=== PATIENT | female | born 1940 | race Caucasian/White ===

== ENCOUNTER 2017-11-29 01:00 | Emergency (ER) | payer MEDICARE ==
[~2017-11-29] VITALS: Ht 167.6 cm; Wt 84.1 kg
[~2017-11-29 01:00] MED LIST: AVAPRO150 MG PO; ESTRACE 0.5 MG0.5 MG PO; MAG-OXIDE400 MG PO; MAXZIDE-25 MG T1 TAB PO; MICARDIS80 MG; PRILOSEC20 MG PO; TUMS500 MG PO; VERELAN360 MG; [UNRECOGNIZED DRUG - OTHER]
[2017-11-29 01:04] VITALS: Ht 167.6 cm; Wt 84.1 kg
[2017-11-29] MEDS ORDERED: CARDIZEM CD360 MG PO (01:08)
[2017-11-29 02:02] VITALS: BP 167/78
== END 2017-11-29 02:02 | disposition home or self-care (01) ==
LOC: D.ER 01:00
DX: I10 Essential (primary) hypertension (principal)

== ENCOUNTER → 2018-03-14 20:09 | Outpatient (CLI) | payer MEDICARE ==
[2017-11-29 01:04] VITALS: BMI 29.9
[~2018-03-14 20:09] MED LIST changes: +CARDIZEM CD360 MG PO
== END | disposition home or self-care (01) ==
LOC: D.MAMMO 13:30
DX: Z12.31 Encounter for screening mammogram for malignant neoplasm of breast (principal)

== ENCOUNTER → 2019-04-17 09:54 | Outpatient (CLI) | payer MEDICARE ==
[2017-11-29 01:04] VITALS: BMI 29.9
[~2019-04-17 09:54] MED LIST changes: +VERELAN180 MG PO
== END | disposition home or self-care (01) ==
LOC: D.HCCECHO 09:54
PROVIDERS: ATTEND Internal Medicine Cardiovascular Disease
DX: I34.0 Nonrheumatic mitral (valve) insufficiency (principal)

== ENCOUNTER 2019-04-19 12:49 | Inpatient (IN) | payer MEDICARE ==
[~2019-04-19] VITALS: Ht 167.6 cm; Wt 81.8 kg
[~2019-04-19 12:49] MED LIST changes: -VERELAN180 MG PO
[2019-04-19] MEDS ORDERED: VERELAN180 MG PO (16:09)
[2019-04-19 16:10] VITALS: BP 165/88; BMI 29.1
--- NOTE | 2019-04-19 16:10 | NUR ---
PT TO ROOM [address]'S OFFICE.ASSESSMENT PER JAZMIN RODRIGUEZ RN. ORIENTATION TO ROOM WITH PATIENT.CALL LIGHT IN REACH
[2019-04-19 16:57] VITALS: Ht 167.6 cm; Wt 81.8 kg
--- NOTE | 2019-04-19 19:50 | NUR ---
LYING QUEITLY WITH NO DISTRESS NOTED. RESP UNLABORED. IV TO LAC INTACT WIHT NO REDNESS OR EDEMA NOTED.DENIES NEEDS AT PRESENT. CL IN REACH
[2019-04-19 20:00] VITALS: BP 125/60
[2019-04-19 23:57] VITALS: BP 125/67
--- NOTE | 2019-04-20 02:19 | NUR ---
I have reviewed this patient and I concur with the Shift Assessment completed by the Licensed Practical Nurse today this shift.
[2019-04-20 04:00] VITALS: BP 148/70
[2019-04-20 05:56] LABS: BASOPHILS 0.3 % (0-2); EOSINOPHILS 2.6 % (0-7); HEMOGLOBIN 12.8 g/dL (12-16); IMMATURE GRANULOCYTES 0.3 % (0-5); LYMPHOCYTES 26.5 % (15-50); MCH 30.6 pg (26.0-34.0); MCHC 33.7 g/dL (31.0-37.0); MCV 90.9 fL (80.0-100.0); MEAN PLATELET VOLUME 8.8 fL (7.4-10.4); MONOCYTES 10.6 % (2-11); NEUTROPHILS 59.7 % (40-80); PLATELET COUNT 305 10x3/uL (130-400); RBC 4.18 10x6/uL (4.00-5.40); WBC 6.6 10x3/uL (4.8-10.8)
[2019-04-20 06:24] LABS: INR 1.11 (0.85-1.17); PROTIME 13.8 SECONDS (11.6-15.0)
[2019-04-20 06:40] LABS: ALBUMIN 2.9 g/dL (3.4-5.0); ALKALINE PHOSPHATASE 76 U/L (46-116); ALT (SGPT) 23 U/L (10-68); CALC OSMOLALITY 273 mosm/kg (275-300); CALCIUM 8.4 mg/dL (8.5-10.1); CARBON DIOXIDE 29.9 mmol/L (21.0-32.0); CHLORIDE - SERUM 101 mmol/L (98-107); CREATININE - SERUM 0.7 mg/dL (0.6-1.3); GLUCOSE 121 mg/dL (74-106); POTASSIUM - SERUM 3.8 mmol/L (3.5-5.1); PROTEIN - SERUM 6.3 g/dL (6.4-8.2); SODIUM 136 mmol/L (136-145); UREA NITROGEN 14 mg/dL (7-18); eGFR NON AFRICAN AMERICAN 85 mL/min (90-120)
[2019-04-20 07:49] VITALS: BP 150/75
--- NOTE | 2019-04-20 09:37 | NUR ---
PT ALERT X 4. BREATH SOUNDS CLEAR BILAT. PT REPORTING IMPROVEMENT IN PAIN, RATED 2/10, ABDOMEN TENDER TO TOUCH. IV TO LEFT FOREARM, SALINE LOCKED. BED LOW, CALL LIGHT IN REACH. NO OTHER NEEDS AT THIS TIME.
[2019-04-20 12:00] VITALS: BP 150/66
--- NOTE | 2019-04-20 13:07 | MORECARE ---
CASE MANAGEMENT DISCHARGE SUMMARY PATIENT: MALISSA BARRIENTOS UNIT: [id number] ADM DATE: 04/19/19 AGE: 78 : 38 SEX: F ROOM/BED: D.2219 AUTHOR: SYDNI PICKETT PHYSICIAN: REFERRING PHYSICIAN: RONY LARSON MD DATE OF SERVICE: 04/20/19 Discharge Plan Patient Name: MALISSA BARRIENTOS [facility] [facility] 1940 Planned Disposition: Anticipated Discharge Date: Discharge Date: Expected LOS: Initial Reviewer: [email or web address] Initial Review Date: 04/19/2019 Generated: 04/20/19 2:07 pm Patient Name: MALISSA BARRIENTOS Page [phone] at 1307 All edits/amendments must be made on the electronic document DICTATION DATE: 04/20/19 1307 COMPTOMETER OPERATOR: RADHA 04/20/19 1307 RPT#: [id number] DC DATE: STATUS: ADM IN [facility] [address] [place] [address] END OF REPORT
--- NOTE | 2019-04-20 13:15 | MORECARE ---
CASE MANAGEMENT DISCHARGE SUMMARY PATIENT: SUSANNE BOLIVAR N UNIT: [id number] ADM DATE: 04/19/19 AGE: 78 : 38 SEX: F ROOM/BED: D.2217 AUTHOR: SYDNI PICKETT PHYSICIAN: REFERRING PHYSICIAN: RONY LARSON MD DATE OF SERVICE: 04/20/19 Discharge Plan Patient Name: SUSANNE BOLIVAR Facility: [facility]:[place] : 1940 Planned Disposition: Anticipated Discharge Date: Discharge Date: Expected LOS: Initial Reviewer: [email or web address] Initial Review Date: 04/19/2019 Generated: 04/20/19 2:15 pm Comments DCP- Discharge Planning Updated by [email or web address]: Rasheeda Donnelly on 04/20/19 12:[address] CM met with patient and spouse, Rony for initial discharge plan. Patient is in agreement to proceed with CM assessment with spouse present. Patient lives in her home with spouse and has 1 step entering home. PCP: Dr. Larsno. Pharmacy: [facility]. DME: None. Uses hearing aid. Independent with ADL's. Emergency contact: Rony Bolivar #[phone]. CM discussed HHS, Rehab, DME, but patient denies any needs. Denies use of community resources. Patient feels her home is a safe environment to return to. Patient denies hospitalization in past 30 days. Transportation home will be provided by spouse, Rony. CM will follow and assist with any dc needs PRN. Coverage Notice Reviewer: [id number] - Rasheeda Donnelly Notice Issued Date-Time: 04/20/2019 13:12 Notice Type: IM Admission Notice Notice Delivered To: Patient Relationship to Patient: Self Continuous Conveyor Screen Drier Name: Susanne Bolivar Delivery Method: HAND - Hand Delivered Margarita Days: Prior Verbal Notification: Recipient Understood Notice: Yes Recipient Signature: Yes Med Rec Note Co-signed by Attending: Coverage Notice Comment: IMM delivered to and signed by patient. Original given to patient and one is placed on chart. Last DP export: 04/20/19 12:07 Patient Name: SUSANNE BOLIVAR Page [phone] at 1315 All edits/amendments must be made on the electronic document DICTATION DATE: 04/20/191314 BARREL RIB MATTING MACHINE OPERATOR: RADHA 04/20/191314 RPT#: [id number] DC DATE: STATUS: ADM IN [facility] [address] [place] [address] END OF REPORT
[2019-04-20] MEDS ORDERED: LEVOFLOXACIN500 MG PO (13:26)
--- NOTE | 2019-04-20 15:03 | NUR ---
DISCHARGE COMPLETED BY Lily DE LEON LPN.
--- NOTE | 2019-04-21 14:09 | MORECARE ---
CASE MANAGEMENT DISCHARGE SUMMARY PATIENT: SUSANNE BOLIVAR N UNIT: [id number] ADM DATE: 04/19/19 AGE: 78 : 38 SEX: F ROOM/BED: D.2219 AUTHOR: SYDNI PICKETT PHYSICIAN: REFERRING PHYSICIAN: RONY LARSON MD DATE OF SERVICE: 04/21/19 Discharge Plan Patient Name: SUSANNE BOLIVAR Facility: [facility]:[place] : 1940 Planned Disposition: Anticipated Discharge Date: Discharge Date: 04/20/2019 Expected LOS: Initial Reviewer: [email or web address] Initial Review Date: 04/19/2019 Generated: 04/21/19 3:08 pm Comments DCP- Discharge Planning Updated by [id number]: Rasheeda Donnelly on 04/20/19 12:[address] CM met with patient and spouse, Rony for initial discharge plan. Patient is in agreement to proceed with CM assessment with spouse present. Patient lives in her home with spouse and has 1 step entering home. PCP: Dr. Larson. Pharmacy: [facility]. DME: None. Uses hearing aid. Independent with ADL's. Emergency contact: Rony Bolivar #[phone]. CM discussed HHS, Rehab, DME, but patient denies any needs. Denies use of community resources. Patient feels her home is a safe environment to return to. Patient denies hospitalization in past 30 days. Transportation home will be provided by spouse, Rony. CM will follow and assist with any dc needs PRN. Coverage Notice Reviewer: [id number] - Rasheeda Donnelly Notice Issued Date-Time: 04/20/2019 13:12 Notice Type: IM Discharge Notice Notice Delivered To: Patient Relationship to Patient: Self Labor Economist Name: Susanne Bolivar Delivery Method: HAND - Hand Delivered Margarita Days: Prior Verbal Notification: Recipient Understood Notice: Yes Recipient Signature: Yes Med Rec Note Co-signed by Attending: Coverage Notice Comment: IMM delivered to and signed by patient. Original given to patient and one is placed on chart. Last DP export: 04/20/19 12:15 Patient Name: SUSANNE BOLIVAR Page [phone] at 1409 All edits/amendments must be made on the electronic document DICTATION DATE: 04/21/191407 FISCAL ACCOUNTING CLERK: RADHA 04/21/191407 RPT#: [id number] DC DATE:04/20/19 STATUS: DIS IN [facility] [address] [place] [address] END OF REPORT
== END 2019-04-20 15:03 | disposition home or self-care (01) | DRG 372 ==
LOC: D.CT 12:49 → D.MS 15:46
PROVIDERS: ADMIT Family Medicine; ATTEND Family Medicine
DX: K65.1 Peritoneal abscess (principal); K56.7 Ileus, unspecified; K56.50 Intestinal adhesions [bands], unspecified as to partial versus complete obstruction; I10 Essential (primary) hypertension

== ENCOUNTER 2019-05-26 14:28 | Emergency (ER) | payer MEDICARE ==
[~2019-05-26] VITALS: Ht 167.6 cm; Wt 81.8 kg
[~2019-05-26 14:28] MED LIST changes: +LEVOFLOXACIN500 MG PO; +VERELAN180 MG PO
[2019-05-26 14:30] VITALS: Ht 167.6 cm; Wt 81.8 kg
[2019-05-26 14:59] LABS: BASOPHILS 0.2 % (0-2); EOSINOPHILS 0.8 % (0-7); HEMATOCRIT 40.3 % (36.0-48.0); HEMOGLOBIN 13.5 g/dL (12-16); IMMATURE GRANULOCYTES 0.1 % (0-5); LYMPHOCYTES 17.6 % (15-50); MCHC 33.5 g/dL (31.0-37.0); MCV 92.4 fL (80.0-100.0); MEAN PLATELET VOLUME 8.6 fL (7.4-10.4); NEUTROPHILS 71.3 % (40-80); PLATELET COUNT 312 10x3/uL (130-400); RBC 4.36 10x6/uL (4.00-5.40); RDW 13.2 % (11.5-14.5); WBC 8.7 10x3/uL (4.8-10.8)
[2019-05-26 15:04] LABS: APPEARANCE CLEAR (CLEAR); COLOR YELLOW (YELLOW); GLUCOSE NEGATIVE (NEGATIVE); KETONE SMALL mg/dL (NEGATIVE); NITRITE NEGATIVE (NEGATIVE); PROTEIN NEGATIVE (NEGATIVE)
[2019-05-26 15:05] LABS: BILIRUBIN NEGATIVE (NEGATIVE); UROBILINOGEN NORMAL (NORMAL)
[2019-05-26 15:06] LABS: RED CELLS - URINE 0-5 /hpf (0-5); WHITE CELLS - URINE 0-5 /hpf (NEGATIVE)
[2019-05-26 15:07] LABS: BACTERIA FEW /hpf (NEGATIVE)
[2019-05-26 15:16] LABS: CALC OSMOLALITY 278 mosm/kg (275-300); CALCIUM 9.1 mg/dL (8.5-10.1); CARBON DIOXIDE 31.4 mmol/L (21.0-32.0); CHLORIDE - SERUM 99 mmol/L (98-107); CREATININE - SERUM 0.7 mg/dL (0.6-1.3); GLUCOSE 110 mg/dL (74-106); POTASSIUM - SERUM 4.2 mmol/L (3.5-5.1); SODIUM 138 mmol/L (136-145); UREA NITROGEN 19 mg/dL (7-18); eGFR NON AFRICAN AMERICAN 85 mL/min (90-120)
[2019-05-26 15:22] LABS: ALBUMIN 3.6 g/dL (3.4-5.0); ALKALINE PHOSPHATASE 86 U/L (46-116); ALT (SGPT) 25 U/L (10-68); BILIRUBIN - TOTAL 0.35 mg/dL (0.2-1.3); PROTEIN - SERUM 7.1 g/dL (6.4-8.2)
[2019-05-26 18:10] VITALS: BP 132/84
== END 2019-05-26 18:11 | disposition home or self-care (01) ==
LOC: D.ER 14:28
PROVIDERS: Family Medicine
DX: R10.9 Unspecified abdominal pain (principal); I10 Essential (primary) hypertension; E07.9 Disorder of thyroid, unspecified; K21.9 Gastro-esophageal reflux disease without esophagitis

== ENCOUNTER 2020-02-09 15:27 | Observation (INO) | payer MEDICARE ==
[~2020-02-09] VITALS: Ht 167.6 cm; Wt 81.8 kg
--- NOTE | ~2020-02-09 | HEMODYNAMI ---
PATIENT:MALISSA BARRIENTOS MEDICAL RECORD: [id number] : 36 [facility] [id number] ADMISSION DATE: 02/09/20 Generatedon:02/10/202012:43 Patient name: MALISSA BARRIENTOS Patient #: [id number] SSN: [id number] : 1940 Date of study: 02/10/2020 Page: Of Hemodynamic Procedure Report Patient Data Patient Demographics Procedure consent was obtained First Name: MALISSA Gender: Female Last Name: ILIANA : 1940 Middle Initial: N Age: 79 year(s) Patient #: [id number] Race: SSN: [id number] Additional ID: [id number] Contact details Address: [address] [place] [address] State: [place] City: [place] Zip code: [address] Admission Admission Data Admission Date: 02/09/2020 Admission Time: 18:41 Arrival Date: 02/10/2020 Arrival Time: 0:00 Admit Source: Other Insurance Payor: Private Room #: D.2117 health insurance [facility] #: [id number] Height (in.): 66 BSA: 1.91 (m2) Height (cm.): 167.64 BMI: 29.11 (kg/m2) Weight (lbs.): 180.36 Weight (kg.): 81.81 Lab Results Lab Result Date: 02/10/2020 Lab Result Time: 0:00 Biochemistry Name Units Result Min Max BUN mg/dl 18 --(---*)-- 7 18 CK-MB ng/ml 1.3 --(-*--)-- 0 3.6 Creatinine mg/dl 1 --(--*-)-- 0.6 1.3 eGFR ml/min 56 *-(----)-- 90 120 NONAFRICAN Troponin l ng/ml 0.017 --(-*--)-- 0 0.06 CBC Name Units Result Min Max Hematocrit % 38.4 *-(----)-- 42 54 Hemoglobin g/dl 13.2 -*(----)-- 13.5 17.5 Procedure Procedure Types Cath Procedure Diagnostic Procedure [facility] w/Coronaries Sedation Charges Moderate Sedation up to 15 minutes Procedure Description Procedure Date Procedure Date: 02/10/2020 Procedure Start Time: 12:30 Procedure End Time: 12:39 Procedure Staff Name Function Davis Luevano MD Performing Physician Yadira Maldonado RT Monitor Shelby Nicole RT Scrub Yana Shanks RN Nurse Nate Bateman RN Nurse Procedure Data Cath Procedure Fluoroscopy Diagnostic fluoroscopy Total fluoroscopy Time: 1 time: 1 min min Diagnostic fluoroscopy Total fluoroscopy dose: 206 dose: 206 mGy mGy Contrast Material Contrast Material Type Amount (ml) Isovue 300 44 Entry Location Entry Primary Successful Side Size Upsize Upsize Entry Closure Corcoran ccessful Closure Location (Fr) 1 (Fr) 2 (Fr) Remarks Device Remarks Radial Right 6 Fr Mechanical artery Short Compression Estimated blood loss: 5 ml Diagnostic catheters Device Type Used For End Catheter Placement DIAGNOSTIC Euless 110cm 5 Multi-vessel Fr catheter ([id number]) Angiography Procedure Complications No complications Procedure Medications Medication Administration Route Dosage 0.9% NaCl I.V. 100 ml/hr Oxygen etCO2 Nasal cannula 2 l/min Heparin Flush Bag added to field 2 bags (1000units/500ml NS) Lidocaine 2% added to field 20 Radial Cocktail added to field 1 syringe (Verapamil 2mg/Nitro 400mcg/Heparin 1500units) Versed I.V. 1 mg Fentanyl I.V. 50 mcg Radial Cocktail added to field 1 syringe (Verapamil 2mg/Nitro 400mcg/Heparin 1500units) Versed I.V. 1 mg Fentanyl I.V. 50 mcg Hemodynamics Rest BSA: 1.91 (m2) HGB: 13.2 (g/dl) O2 Consumption: Estimated: 166.03 (ml/min) O2 Co nsumption indexed: Estimated:86.93 (ml/min/m) Heart Rate: 63 (bpm) Pressure Samples Time Site Value (mmHg) Purpose Heart Use Rate(bpm) 12:35 LV 115/-31,-1 Snapshot 66 Gradients Valve Time Site Site Mean SEP/DFP Peak To Heart Use 1 2 (mmHg) (sec/min) Peak Rate (mmHg) (bpm) Aortic 12:36 LV AO 69 Snapshots Pre Cath Intra NCS Post Cath Vital Signs Time Heart Resp SPO2 etCO2 NIBP (mmHg) Rhythm Pain Sedation Rate (ipm) (%) (mmHg) Status Level (bpm) 12:17:40 62 14 97 44.6 135/68(111) NSR 0 (11) 10(A) , No pain 12:21:58 60 13 98 27.2 126/66(112) NSR 0 (11) 10(A) , No pain 12:26:14 60 14 97 43.1 117/61(84) NSR 0 (11) 10(A) , No pain 12:30:24 60 11 96 37 109/67(88) NSR 0 (11) 10(A) , No pain 12:34:35 91 15 97 39.3 115/54(80) NSR 0 (11) 10(A) , No pain 12:38:48 65 16 95 42.3 110/55(89) NSR 0 (11) 10(A) , No pain Medications Time Medication Route Dose Verified Delivered Reason Notes Effectiveness by by 12:14:32 0.9% NaCl I.V. 100 Yana Yana Per ml/hr Dimitris Dimitris physician RN RN 12:15:35 Oxygen etCO2 2 l/min Nate Nate for low 02 Nasal Lorigan Lorigan sats cannula RN RN 12:15:55 Heparin Flush added 2 bags Nate Naet used for Bag to Lorigan Lorfarhat procedure (1000units/500ml field RN RN NS) 12:16:14 Lidocaine 2% added 20ml Nate Nate for local to vial Lorigan Lorigan anesthetic field RN RN 12:16:32 Radial Cocktail added 1 Nate Nate used for (Verapamil to syringe Lorigan Lorigan procedure 2mg/Nitro field RN RN 400mcg/Heparin 1500units) 12:20:56 Versed I.V. 1 mg Nate Nate for sedation Fransico Bateman RN RN 12:21:04 Fentanyl I.V. 50 mcg Nate Nate for sedation Fransico Bateman RN RN 12:35:50 Radial Cocktail added 1 Nate Davis for (Verapamil to syringe Lorigan Chloé vasodilation 2mg/Nitro field KEDAR HERNÁNDEZ 400mcg/Heparin 1500units) 12:36:41 Versed I.V. 1 mg Nate Nate for sedation Fransico Bateman RN RN 12:36:48 Fentanyl I.V. 50 mcg Nate Sullivan for sedation Fransico Bateman RN acquisition analyst Log Time Note 11:45:25 Shelby Nicole RT(R) sent for patient. Start room use. 11:46:07 Informed consent obtained and on chart 11:46:29 Diagnostic Cath Status : Urgent 11:47:35 Lab Result : eGFR NONAFRICAN 56 ml/min 11:47:35 Lab Result : BUN 18 mg/dl 11:47:35 Lab Result : Troponin l 0.017 ng/ml 11:47:35 Lab Result : Creatinine 1 mg/dl 11:47:35 Lab Result : CK-MB 1.3 ng/ml 11:47:35 Lab Result : Hemoglobin 13.2 g/dl 11:47:35 Lab Result : Hematocrit 38.4 % 11:47:40 Arrival Date: 02/10/2020 12:00:00 AM 11:47:40 Admit Source: Other 11:47:45 Insurance Payor : Private health insurance 11:47:48 Patient Height : 66 inches 11:47:54 Patient Weight : 180.36 lbs 11:48:13 ACC Patient presents with Stable Angina CCS Anginal Class 2--Slight limitation of ordinary activity. 11:48:16 Procedure Status Urgent Heart Cath (IP). 11:48:18 Time tracking: Regular hours (M-F 7:00 - 5:00) 11:48:22 Plan of Care:Hemodynamics will remain stable., Cardiac rhythm will remain stable., Comfort level will be maintained., Respiratory function will remain adequate., Patient/ family verbilizes understanding of procedure., Procedure tolerated without complication., Recovers from procedure without complications.. 12:14:32 0.9% NaCl 100 ml/hr I.V. was administered by Yana Shanks RN; Per physician; Verbal order read back and verified. 12:15:20 Vital chart was started 12:15:35 Oxygen 2 l/min etCO2 Nasal cannula was administered by Nate Bateman RN; for low 02 sats; Verbal order read back and verified. 12:15:55 Heparin Flush Bag (1000units/500ml NS) 2 bags added to field was administered by Nate Bateman RN; used for procedure; Verbal order read back and verified. 12:16:14 Lidocaine 2% 20ml vial added to field was administered by Nate Bateman RN; for local anesthetic; Verbal order read back and verified. 12:16:32 Radial Cocktail (Verapamil 2mg/Nitro 400mcg/Heparin 1500units) 1 syringe added to field was administered by Nate Bateman RN; used for procedure; Verbal order read back and verified. 12:18:02 Patient received from Med II to CCL 2 Alert and oriented. Tansferred to table in Supine position. 12:18:03 Warm blankets applied, and nelson hugger turned on for patient comfort. 12:18:04 Correct patient and procedure confirmed by team. 12:18:04 ECG and BP/O2 sat monitors applied to patient. 12:18:05 Baseline sample Acquired. 12:18:08 Rhythm: sinus rhythm 12:18:11 Full Disclosure recording started 12:18:20 H&P Date Dictated: 02/10/2020 New H&P dictated by physician.. 12:19:22 Pre-procedure instructions explained to patient. 12:19:23 Pre-op teaching completed and patient verbalized understanding. 12:19:27 Family in patients room. 12:19:29 Patient NPO since Midnight. 12:19:31 Is the patient allergic to Iodine/contrast media? No. 12:19:32 Was the patient premedicated? Yes 12:19:33 Is patient on blood thinner?No 12:19:34 Patient diabetic? No. 12:19:37 Previous problem with sedation/anesthesia? No ? 12:19:39 Snore? Yes 12:19:40 Sleep apnea? No 12:19:41 Deviated septum? No 12:19:42 Opens mouth fully? Yes 12:19:43 Sticks out tongue? Yes 12:19:50 Airway obstruction? No ? 12:19:52 Dentures? No ? 12:19:56 Pre procedure: right dorsailis pedis pulse 2+ Normal; easily identifiable; not easily obliterated 12:19:58 Pre procedure: left dorsailis pedis pulse 2+ Normal; easily identifiable; not easily obliterated 12:20:00 Patient pain scale 0/10 ?. 12:20:06 IV patent on arrival in left forearm with 0.9% NaCl at [facility]. 12:20:08 Lab results completed and on chart. 12:20:14 Right Radial & Right Groin area was prepped with chlora-prep and draped in sterile fashion 12:20:15 Alarms reviewed by RAlen N. 12:20:15 Sharps counted by scrub and verified by R.N. 12:20:16 Physician arrived 12:20:17 --------ALL STOP TIME OUT------ 12:20:17 Final Timeout: patient, procedure, and site verified with staff and physician. All members of the team are in agreement. 12:20:19 Right Radial & Right Groin site verified by team. 12:20:22 Fire Safety Assessment: A--An alcohol-based skin anteseptic being used preoperatively., C--Open oxygen or nitrous oxide is being used., D--An ESU, laser, or fiber-optic light is being used. 12:20:25 Physical assessment completed. ASA score P 2 - A patient with mild systemic disease as per Davis Luevano MD. 12:20:29 3a) 45-59 Moderately reduced kidney function. 12:20:32 Maximum allowable contrast dose (3.7 X eGFR X 0.75)155 ml. 12:20:39 Sedation plan: IV Moderate Sedation Medication:Versed, Fentanyl 12:20:44 Use device set Radial Dx or PCI 12:20:45 ACIST Syringe (05345) opened to sterile field. 12:20:46 Medline Cath Pack ([id number]) opened to sterile field. 12:20:46 Bag Decanter () opened to sterile field. 12:20:46 ACIST Hand Control (86599) opened to sterile field. 12:20:47 ACIST Manifold (41179) opened to sterile field. 12:20:47 Tegaderm 4 x 4 (1626W) opened to sterile field. 12:20:48 MBrace Wrist Support ([id number]) opened to sterile field. 12:20:51 SHEATH 6FR RAIN (6047345) opened to sterile field. 12:20:51 EMERALD Guide Wire (599-069) opened to sterile field. 12:20:56 Versed 1 mg I.V. was administered by Nate Bateman RN; for sedation; Verbal order read back and verified. 12:21:04 Fentanyl 50 mcg I.V. was administered by Nate Bateman RN; for sedation; Verbal order read back and verified. 12:26:44 Zero performed for pressure channel P1 12:28:46 Procedure started. 12:30:01 Local anesthetic to right radial artery with Lidocaine 2% by Davis Luevano MD.INITIAL ACCESS ONLY 12:32:57 A 6 Fr Short sheath was inserted into the Right Radial artery 12:34:17 A DIAGNOSTIC Euless 110cm 5 Fr catheter (129391) was advanced over the wire and used for Multi-vessel Angiography. 12:35:50 Radial Cocktail (Verapamil 2mg/Nitro 400mcg/Heparin 1500units) 1 syringe added to field was administered by Davis Luevano MD; for vasodilation; Verbal order read back and verified. 12:35:50 LV hemodynamics recorded. 12:35:51 LV gram done using ARMENTA 12:35:53 Injector settings: Ml/sec: 5, Volume: 15, 12:36:02 EF : 55 % 12:36:15 LCA angiography performed. 12:36:17 Injector settings: Ml/sec: 3, Volume: 6, 12:36:41 Versed 1 mg I.V. was administered by Nate Bateman RN; for sedation; Verbal order read back and verified. 12:36:48 Fentanyl 50 mcg I.V. was administered by Nate Bateman RN; for sedation; Verbal order read back and verified. 12:37:14 RCA angiography performed. 12:37:17 Injector settings: Ml/sec: 3, Volume: 6, 12:37:21 Catheter removed. 12:37:30 ZEPHYR REGULAR TR BAND (653829) opened to sterile field. 12:37:35 ACCDominant side:Right 12:37:44 Sheath removed intact; hemostasis achieved with Mechanical Compression to the Right Radial artery. 12:37:45 Procedure ended.(Physican Out) 12:38:01 Fluoroscopy time 01.00 minutes. 12:38:04 Flurop Dose total: 206 12:38:04 Fluoroscopy dose: 206 mGy 12:38:09 Dose Area Product 57994 mGy/cm. 12:38:31 Contrast amount:Isovue 300 44ml. 12:38:32 Maximum allowable dose exceeded? No. 12:38:33 Sharps counted by scrub and verified by R.N. 12:38:37 [place] band inflated with 10cc of air. 12:38:38 Insertion/operative site no bleeding no hematoma. 12:38:48 Post right radial artery:stable 12:38:49 Post Procedure Pulses reassessed and unchanged 12:38:51 Post procedure rhythm: unchanged. 12:38:54 Estimated blood loss: 5 ml 12:38:57 Post procedure instruction explained to patient.Patient verbalizes understanding. 12:38:58 Patient needs reinforcement of post procedure teaching. 12:39:26 Procedure type changed to Cath procedure, Diagnostic procedure, LHC, [facility] w/Coronaries, Sedation Charges, Moderate Sedation up to 15 minutes 12:39:28 Procedure and supply charges have been captured, reviewed, submitted and are correct. 12:39:34 Procedure Complication : No complications 12:39:37 Vital chart was stopped 12:39:38 [facility] Findings: mild to moderate CAD (<70%) 12:39:40 Operative report dictated upon procedure completion. 12:39:40 See physician's report for complete and final results. 12:39:42 Report given to Med II. 12:39:45 Patient transfered to Med II with Stretcher. 12:39:46 Procedure ended. 12:39:46 Full Disclosure recording stopped 12:39:52 End room use (Document Last) 12:41:12 End room use (Document Last) Device Usage Item Name Manufacture Quantity Catalog Hospital Part Current Minima l Lot# / Number Charge Number Stock Stock Serial# Code ACIST Acist 1 58746 185088 066749 [id number] 20 Syringe Medical (11756) Systems Inc Medline Medline 1 [id number] 21269 071008 5 Cath Pack ([id number]) Bag Microtek 1 292454 66656 591499 5 Decanter Medical Inc. () ACIST Hand Acist 1 03659 001050 015248 202387 5 Control Medical (22181) Systems Inc ACIST Acist 1 23788 064899 494633 562645 5 Manifold Medical (80608) Systems Inc Tegaderm 4 3M 1 1626W 153921 819102 569535 5 x 4 (1626W) MBrace Advanced 1 140-0250-00 051001 08195 073287 5 Wrist Vascular Support Dynamics ([id number]) SHEATH 6FR [place] 1 3056930 192122 4866515 742883 5 [facility] (7318831) EMERALD Cardinal 1 267-031 981401 073112 540139 5 Guide Wire Health (660-946) DIAGNOSTIC Terumo 1 40-2866 267829 999809 084984 5 Euless 110cm 5 Fr catheter (284248) ZEPHYR Cardinal 1 813007 198096 2642849 176763 5 REGULAR TR Health BAND (108943) Signature Audit [place] Stage Time Signature Unsigned Intra-Procedure 02/10/2020 Yadira Maldonado 12:41:12 PM RT(R) Intra-Procedure 02/10/2020 Nate 12:43:27 PM Lorigan RN Intra-Procedure 02/10/2020 Davis Gotti 12:43:56 PM Johnathan HERNÁNDEZ Signatures Performing Physician : Signature : Davis Luevano MD Date : Time : Monitor : Yadira Maldonado RT Signature : Date : Time : Nurse : Yana Signature : Dimitris RN Date : Time : Nurse : Nate Lorigan Signature : RN Date : Time : [facility] [address] [place] [address]
[2020-02-09 15:36] VITALS: BP 173/70
[2020-02-09 16:25] VITALS: BP 173/68
[2020-02-09 16:43] LABS: BASOPHILS 0.4 % (0-2); EOSINOPHILS 1.2 % (0-7); HEMATOCRIT 38.4 % (36.0-48.0); HEMOGLOBIN 13.2 g/dL (12-16); IMMATURE GRANULOCYTES 0.1 % (0-5); MCH 31.1 pg (26.0-34.0); MCHC 34.4 g/dL (31.0-37.0); MCV 90.4 fL (80.0-100.0); MEAN PLATELET VOLUME 8.7 fL (7.4-10.4); MONOCYTES 9.7 % (2-11); NEUTROPHILS 67.6 % (40-80); PLATELET COUNT 318 10x3/uL (130-400); RBC 4.25 10x6/uL (4.00-5.40); RDW 12.8 % (11.5-14.5); WBC 7.8 10x3/uL (4.8-10.8)
[2020-02-09 16:47] LABS: APTT 27.3 SECONDS (22.8-39.4); INR 0.95 (0.85-1.17); PROTIME 12.7 SECONDS (11.6-15.0)
[2020-02-09 16:53] LABS: CALC OSMOLALITY 276 mosm/kg (275-300); CALCIUM 9.2 mg/dL (8.5-10.1); CARBON DIOXIDE 32.7 mmol/L (21.0-32.0); CHLORIDE - SERUM 100 mmol/L (98-107); GLUCOSE 157 mg/dL (74-106); POTASSIUM - SERUM 3.5 mmol/L (3.5-5.1); SODIUM 136 mmol/L (136-145); UREA NITROGEN 18 mg/dL (7-18); eGFR NON AFRICAN AMERICAN 56 mL/min (90-120)
[2020-02-09 17:07] LABS: ALBUMIN 3.4 g/dL (3.4-5.0); ALKALINE PHOSPHATASE 87 U/L (30-120); ALT (SGPT) 19 U/L (10-68); BILIRUBIN - TOTAL 0.21 mg/dL (0.2-1.3); CKMB 1.3 U/L (0.0-3.6); CREATINE KINASE 74 UL (21-215); MAGNESIUM - SERUM 1.6 mg/dL (1.8-2.4); TROPONIN-I < 0.017 ng/mL (0.000-0.060)
[2020-02-09 18:15] VITALS: BP 169/71
[2020-02-09 21:00] VITALS: BP 165/77
--- NOTE | 2020-02-09 21:33 | NUR ---
ATTEMPTED TO CALL REPORT. RECEIVING NURSE TO CLARIFY ASSIGNMENT.
--- NOTE | 2020-02-09 22:30 | NUR ---
ADMIT TO ROOM 2116 FROM ER VIA WHEELCHAIR. PT ALERT/ORIENTED. ABLE TO STAND AND SAFELY AMBULATE AROUND ROOM. ASSISTED TO CHANGE IN HOSPITAL GOWN. TELEMETRY STARTED 73/SR. ADMISSION HISTORY AND ASSESSMENT COMPLETED. HOME MEDS REVIEWED/UPDATED. ALLOWED PT TO TAKE HER HOME BP MED, BECAUSE SHE WAS UPSET THAT HER BP WOULD BECOME ELEVATED WITHOUT TAKING IT. REVIEWED PLAN OF CARE. SAFETY PRECAUTIONS. NPO AFTER MIDNIGHT FOR CARDIOLOGY CONSULT IN AM.
[2020-02-09 23:15] VITALS: BP 160/67; BMI 29.1
[2020-02-09 23:36] LABS: CKMB 1.2 U/L (0.0-3.6); TROPONIN-I < 0.017 ng/mL (0.000-0.060)
[2020-02-10 04:35] VITALS: BP 117/64
[2020-02-10 06:47] LABS: CKMB 1.4 U/L (0.0-3.6); CREATINE KINASE 72 UL (21-215); TROPONIN-I < 0.017 ng/mL (0.000-0.060)
--- NOTE | 2020-02-10 07:46 | NUR ---
LT AC IV LEAKING. REMOVED IV WITH CATHETER TIP INTACT. NEW 22G IV STARTED TO LT FA X1 STICK, PT TOLERATED WELL. TAPED IV TO SKIN AND DATED IT. PT DENIES ANY NEEDS AT THIS TIME. CALL LIGHT IN REACH, AT BEDSIDE NAD NOTED, WILL CONTINUE TO MONITOR.
[2020-02-10 09:06] LABS: BASOPHILS 0.4 % (0-2); EOSINOPHILS 1.7 % (0-7); HEMOGLOBIN 12.7 g/dL (12-16); MCH 31.2 pg (26.0-34.0); MCHC 34.3 g/dL (31.0-37.0); MCV 90.9 fL (80.0-100.0); MEAN PLATELET VOLUME 8.8 fL (7.4-10.4); MONOCYTES 9.5 % (2-11); NEUTROPHILS 62.4 % (40-80); PLATELET COUNT 313 10x3/uL (130-400); RBC 4.07 10x6/uL (4.00-5.40); RDW 12.9 % (11.5-14.5)
[2020-02-10 09:25] LABS: ALT (SGPT) 19 U/L (10-68); CALCIUM 8.9 mg/dL (8.5-10.1); CARBON DIOXIDE 30.3 mmol/L (21.0-32.0); CHLORIDE - SERUM 101 mmol/L (98-107); CHOL - HDL RATIO 3.4 ratio (2.3-4.1); CHOLESTEROL, TOTAL 144 mg/dL (0-200); HDL CHOLESTEROL 42 mg/dL (32-96); LDL CHOLESTEROL 87 mg/dL (0-100); LDL-HDL RATIO 2.1 ratio (1.5-3.5); POTASSIUM - SERUM 3.8 mmol/L (3.5-5.1); SODIUM 137 mmol/L (136-145); TRIGLYCERIDE 78 mg/dL (30-200); UREA NITROGEN 14 mg/dL (7-18); eGFR NON AFRICAN AMERICAN 85 mL/min (90-120)
[2020-02-10 09:26] LABS: CALC OSMOLALITY 274 mosm/kg (275-300); CREATININE - SERUM 0.7 mg/dL (0.6-1.3); GLUCOSE 103 mg/dL (74-106)
[2020-02-10 09:39] VITALS: BP 164/60
--- NOTE | 2020-02-10 13:00 | NUR ---
RECEIVED PT BACK TO ROOM 2116, VITALS SIGNS STABLE, PLACED ON FREQUENT VITAL SIGNS. RT WRIST Z BAND WITH 10CC OF AIR, DRESSING STAINED WITH BLOOD AND BRUISED BUT NO S/S OF HEMATOMA OR ACTIVE BLEEDING AT THIS TIME. PT A/O X4, DENIES ANY NEEDS AT THIS TIME.
[2020-02-10 13:19] VITALS: Ht 167.6 cm; Wt 81.8 kg
--- NOTE | 2020-02-10 16:20 | NUR ---
PROVIDED VERBAL AND WRITTEN DISCHARGE TEACHING. TO PT WHO VERBALIZED UNDERSTANDING REGARDING TEACHING. D/C LT FA IV WITH CATHETER TIP INTACT. HEART MONITOR REMOVED AND TAKEN TO MANAGER TAX. PT LEFT UNIT VIA WHEELCHAIR, WITH ALL BELONGINGS, NAD NOTED.
--- NOTE | 2020-02-10 17:45 | MORECARE ---
CASE MANAGEMENT DISCHARGE SUMMARY PATIENT: MALISSA BOLIVAR N UNIT: [id number] ADM DATE: 02/09/20 AGE: 79 : 38 SEX: F ROOM/BED: D.6785 AUTHOR: SYDNI PICKETT PHYSICIAN: REFERRING PHYSICIAN: RONY LARSON MD DATE OF SERVICE: 02/10/20 Discharge Plan Patient Name: MALISSA BOLIVAR [facility] [facility] 1940 Planned Disposition: Home Anticipated Discharge Date: 02/10/20 Discharge Date: 02/10/2020 Expected LOS: 1 Initial Reviewer: [email or web address] Initial Review Date: 02/09/2020 Generated: 02/10/20 6:44 pm Coverage Notice Reviewer: [email or web address] Aleksandra Donnelly Notice Issued Date-Time: 02/10/2020 9:00 Notice Type: Medicare Outpatient Observation Notice Notice Delivered To: Patient Relationship to Patient: Self Relocation Director Name: Shira Bolivar Delivery Method: HAND - Hand Delivered Margarita Days: Prior Verbal Notification: Recipient Understood Notice: Yes Recipient Signature: Yes Med Rec Note Co-signed by Attending: Coverage Notice Comment: CABRAL signed, patient declined her copy. Original to chart. Patient Name: MALISSA BOLIVAR Page 58972 at 1745 All edits/amendments must be made on the electronic document DICTATION DATE: 02/10/201744 EYE GLASS FRAME POLISHER: RADHA 02/10/201744 RPT#: [id number] DC DATE:02/10/20 STATUS: DIS IN [facility] [address] [place] [address] END OF REPORT
--- NOTE | 2020-02-11 08:59 | OP ---
PATIENT NAME: MALISSA BARRIENTOS MEDICAL RECORD: [id number] :36 LOCATION:D.M2 D.2117 ADMISSION DATE:02/09/20 SURGEON: MARINA MONROE MD DATE OF OPERATION: 02/10/2020 PROCEDURE: Left heart catheterization, selective coronary angiography, right radial approach. CATHETERS: Radial sheath, Hubbard catheter. The procedure was well tolerated. The patient was returned to the [place]. Sheath was removed. TR band was placed. FINDINGS: Left ventriculography in 30-degree ARMENTA view; normal wall motion and normal systolic function. CORONARY ANATOMY: LEFT MAIN: Left main is free of disease. LAD: Free of disease in the diagonal system. CIRCUMFLEX: Free of disease in the marginal system. RIGHT CORONARY ARTERY: Dominant artery, gives rise to PDA, free of disease. IMPRESSION: Normal LV systolic function, normal coronary anatomy. TRANSINT:[id number] Voice Confirmation ID: [id number] DOCUMENT ID: [id number] MARINA MONROE MD at 0859 CC: [id number] DICTATION DATE: 02/10/20 1247 ASSURANCE ANALYST: 02/10/208 DIS IN 02/10/[address] [facility] [address] [place] [address]
--- NOTE | 2020-02-11 08:59 | CN ---
PATIENT NAME:MALISSA BARRIENTOS MEDICAL RECORD: [id number] : 36 LOCATION:D. D.2117 ADMIT DATE: 02/09/20 ACCOUNT: [id number] CONSULTING PHYSICIAN: MARINA MONROE MD REFERRING PHYSICIAN: RONY LARSON MD DATE OF CONSULTATION: 02/10/2020 HISTORY OF PRESENT ILLNESS: An 79-year-old female with no known history of coronary artery disease. She has a history of hypertension, somewhat difficult to controle of late, as well as history of osteoarthritis presenting with chest pain over the last 2-3 weeks. She has been having more trouble with her hypertension as of late. Initially, was exertional with rapidly progressing class 3 with rest symptomology. We are asked to see her concerning her cardiovascular status. PAST MEDICAL HISTORY: 1. History of hypertension. 2. Osteoarthritis. ALLERGIES: PENICILLIN. MEDICATIONS: Typically include Avapro 150 mg p.o. daily, verapamil 180 mg p.o. daily, Dyazide 37.5/25 every day. SOCIAL HISTORY: Nonsmoker, nondrinker. Easily takes care of all her ADLs, does try to walk on a regular basis. REVIEW OF SYSTEMS: The patient reports easy bruising but reports no swollen glands. The patient reports no fever, no night sweats, no significant weight gain, no significant weight loss. No significant exercise tolerance. The patient reports no dry eyes, no irritation, no vision change. Patient reports no difficulty hearing and no ear pain. Patient reports no frequent nose bleeds or nose and sinus problems. Patient reports on arm pain on exertion. No shortness of breath while lying down. No history of heart murmur. Patient reports no cough, no wheezing or coughing up blood. Patient reports no abdominal pain, no vomiting. Normal appetite. No diarrhea and not vomiting blood. No nausea and no constipation. Patient reports no incontinence. No difficulty urinating. No hematuria. No increased frequency. Patient reports no muscle aches. No weakness, no arthralgias, no back pain. No swelling of the extremities. Patient reports no abnormal mole, no jaundice, no rashes. Reports no loss of consciousness. No weakness and no numbness. No seizures, dizziness, or headaches. The patient reports no depression, no sleep disturbance, feeling safe in a relationship and no alcohol abuse. Patient reports on fatigue. Reports no runny nose or sinus pressure. No itching, no hives, and no frequent sneezing. PHYSICAL EXAMINATION: GENERAL: Pleasant, in no acute distress, appears stated age. VITAL SIGNS: 154/60, pulse 66 and regular. HEENT: Normocephalic, atraumatic. NECK: No JVD or bruit. HEART: Regular. LUNGS: Good excursion. ABDOMEN: Soft, nontender. EXTREMITIES: Pulses 2+. No edema. CONSULT REPORT [id number] MALISSA BARRIENTOS DIAGNOSTIC DATA: EKG shows nonspecific ST-T changes inferiorly. IMPRESSION: Acute coronary syndrome, rapid progression of symptomology class III. PLAN: For angiography, intervention based on above. TRANSINT:[id number] Voice Confirmation ID: [id number] DOCUMENT ID: [id number] MARINA MONROE MD at 0859 CC: [id number] DICTATION DATE: 02/10/20 1214 UTILITY MANAGER: 02/10/20 2151 DIS IN 02/10/20 [facility] [address] [place] [address]
== END 2020-02-10 16:50 | disposition home or self-care (01) ==
LOC: D.ER 15:27 → D.EDHOLD 18:41 → D.M2 18:41 → OBSVTIME 21:00 → D.M2 21:00
PROVIDERS: Family Medicine; Internal Medicine Interventional Cardiology; ADMIT Family Medicine; ATTEND Family Medicine
DX: R07.9 Chest pain, unspecified (principal); I10 Essential (primary) hypertension

== ENCOUNTER 2020-07-07 16:00 | Outpatient (CLI) | payer MEDICARE ==
[2020-02-10 13:19] VITALS: BMI 29.1
== END 2020-07-07 23:59 | disposition home or self-care (01) ==
LOC: D.MAMMO 16:00
PROVIDERS: ATTEND Family Medicine
DX: Z12.31 Encounter for screening mammogram for malignant neoplasm of breast (principal)